=== PATIENT | male | born 2005 | race Two or more races ===

== ENCOUNTER 2024-05-24 17:54 | Emergency (ER) | payer BC, OTHER ==
[~2024-05-24] VITALS: Ht 170.2 cm; Wt 95.6 kg
[2024-05-24 18:15] VITALS: BP 122/64; PULSE 78; RESP 16; TEMP 98.3; O2SAT 98
[2024-05-24] MEDS: KETOROLAC TROMETH 60MG/2ML VIAL IM ONE (18:52)
[2024-05-24] MEDS ORDERED: METH-1181 PO (19:52)
[2024-05-24] MEDS ORDERED: DIP005TP EX (20:02)
== END 2024-05-24 20:13 | disposition home or self-care (01) ==
LOC: ER 17:54
DX: S16.1XXA Strain of muscle, fascia and tendon at neck level, initial encounter (principal); M25.511 Pain in right shoulder; W18.39XA Other fall on same level, initial encounter; Y93.89 Activity, other specified; Y92.89 Other specified places as the place of occurrence of the external cause; Y99.8 Other external cause status
CPT/HCPCS: 72040; 73010; 73030; 96372; 99284; J1885